=== PATIENT | female | born 1945 | race Caucasian/White ===

== ENCOUNTER 2017-03-29 13:10 | Emergency (ER) | payer MEDICARE, OTHER ==
[2017-03-29 13:46] VITALS: BP 133/85
--- NOTE | 2017-03-29 13:57 | UC ---
Throat Pain/Nasal Al HPI - HPI Summary HPI Summary: Pt c/o nasal congestion, sinus pressure, pain X 2 weeks. - History of Current Complaint Chief Complaint: UCRespiratory Stated Complaint: SINUS COMPLAINT/CHEST COLD Time Seen by Provider: 03/29/17 13:52 Hx Obtained From: Patient Hx Last Menstrual Period: n/a ?: No Onset/Duration: Gradual Onset, Lasting Weeks Severity: Mild Associated Signs & Symptoms: Positive: Sinus Discomfort - Epiglottits Risk Factors Epiglottis Risk Factors: Negative - Allergies/Home Medications Allergies/Adverse Reactions: Allergies Allergy/AdvReac Type Severity Reaction Status Date / Time seasonal allergies Allergy Eyes Uncoded 03/29/17 13:41 Itchy/Swollen/Red/Watery Home Medications: Home Medications Aspirin EC Low Dose* [Ecotrin EC Low Dose 81 MG*] 81 mg PO DAILY 03/29/17 [ History Confirmed 03/29/17] Chlorthalidone TAB* [Hygroton TAB*] 25 mg PO DAILY 03/29/17 [History Confirmed 03/29/17] Citalopram TAB* [Celexa TAB*] 10 mg PO DAILY 03/29/17 [History Confirmed ] Fexofenadine (NF) [Cyndy 180 (NF)] 180 mg PO DAILY PRN 03/29/17 [History Confirmed 03/29/17] Fluticasone NASAL SPRAY 50MCG* [Flonase NASAL SPRAY 50MCG*] 2 spray BOTH NARES DAILY PRN 03/29/17 [History Confirmed 03/29/17] Levothyroxine TAB* [Synthroid 88 MCG TAB*] 88 mcg PO DAILY 03/29/17 [History Confirmed 03/29/17] Rosuvastatin (NF) [Crestor (NF)] 20 mg PO DAILY 03/29/17 [History Confirmed ] PMH/Surg Hx/FS Hx/Imm Hx Previously Healthy: Yes Cardiovascular History: Hypertension - Surgical History Surgical History: Yes Surgery Procedure, Year, and Place: Left Knee Arthroscopy (Meniscus Tear), 2014 , ; right shoulder arthritis - Family History Known Family History: Positive: Cardiac Disease - Social History Occupation: Retired Lives: With Family Alcohol Use: Occasionally Substance Use Type: None Smoking Status (MU): Never Smoked Tobacco Have You Smoked in the Last Year: No - Immunization History Most Recent Influenza Vaccination: January 2017 Vaccination Up to Date: Yes Review of Systems Constitutional: Fatigue Skin: Negative Eyes: Negative ENT: Sinus Congestion, Sinus Pain/Tenderness, Other - nasal congestion, PND Respiratory: Cough Cardiovascular: Negative Gastrointestinal: Negative Genitourinary: Negative Motor: Negative Neurovascular: Negative Musculoskeletal: Negative Neurological: Headache Psychological: Negative Is Patient Immunocompromised?: No All Other Systems Reviewed And Are Negative: Yes Physical Exam Triage Information Reviewed: Yes Appearance: Well-Appearing Vital Signs: Initial Vital Signs Temp 97.2 F 03/29/17 13:39 Pulse 90 03/29/17 13:39 Resp 16 03/29/17 13:39 BP 133/85 03/29/17 13:39 Pulse Ox 98 03/29/17 13:39 Vital Signs Reviewed: Yes Eye Exam: Normal ENT Exam: Other ENT: Positive: Nasal congestion, Other - PND Dental Exam: Normal Neck exam: Normal Respiratory Exam: Normal Cardiovascular Exam: Normal Musculoskeletal Exam: Normal Neurological Exam: Normal Psychological Exam: Normal Skin Exam: Normal Throat Pain/Nasal Course/Dx - Differential Dx/Diagnosis Differential Diagnosis/HQI/PQRI: Influenza, Sinusitis, URI Provider Diagnoses: sinusitis Discharge - Discharge Plan Condition: Stable Disposition: HOME Prescriptions: Amoxicillin PO (*) [Amoxicillin 875 MG (*)] 875 mg PO Q12H #20 tab Patient Education Materials: Sinusitis (ED) Referrals: Itzel Lindquist MD [Primary Care Provider] - If Needed Additional Instructions: Please follow up with your PCP or return to clinic as needed. For symptom management you may use Coricidin brand OTC cough/cold medication.
== END 2017-03-29 14:06 | disposition home or self-care (01) ==
LOC: UCCORT 13:10
DX: J32.9 Chronic sinusitis, unspecified (principal); I10 Essential (primary) hypertension
CPT/HCPCS: 99212; G0463